=== PATIENT | male | born 1990 | race Caucasian/White ===

== ENCOUNTER 2016-06-03 23:10 | Emergency (ER) | payer BC ==
[~2016-06-03 23:10] MED LIST: MOTRIN
== END 2016-06-03 23:53 | disposition home or self-care (01) ==
LOC: SED 23:10
DX: K64.4 Residual hemorrhoidal skin tags (principal); F31.9 Bipolar disorder, unspecified; F17.200 Nicotine dependence, unspecified, uncomplicated
CPT/HCPCS: 99283

== ENCOUNTER 2016-07-23 19:22 | Emergency (ER) | payer OTHER, BC ==
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
[2016-07-23] MEDS ORDERED: CLARITIN10 M2 (19:35)
== END 2016-07-23 20:49 | disposition home or self-care (01) ==
LOC: SED 19:22
DX: S16.1XXA Strain of muscle, fascia and tendon at neck level, initial encounter (principal); S39.012A Strain of muscle, fascia and tendon of lower back, initial encounter; F17.210 Nicotine dependence, cigarettes, uncomplicated; V49.40XA Driver injured in collision with unspecified motor vehicles in traffic accident, initial encounter; Y92.410 Unspecified street and highway as the place of occurrence of the external cause
CPT/HCPCS: 72040; 72100; 99284

== ENCOUNTER 2016-10-05 23:23 | Emergency (ER) | payer SELFPAY ==
[~2016-10-05] VITALS: Ht 172.7 cm; Wt 83.9 kg
[~2016-10-05 23:23] MED LIST changes: +CLARITIN10 M2
[2016-10-06 01:14] LABS: ARTERIAL BLD GAS O2 SATURATION 87.5 % (90.0-100.0); ARTERIAL BLOOD GAS CARBOXY HB 4.6 %sat (0.0-9.0)
[2016-10-06 01:15] LABS: ARTERIAL DRAW? YES
[2016-10-06 01:16] LABS: ARTERIAL BLOOD GAS ART SITE RIGHT RADIAL
== END 2016-10-06 01:44 | disposition home or self-care (01) ==
LOC: SED 23:23
PROVIDERS: Physician Assistant
DX: G43.909 Migraine, unspecified, not intractable, without status migrainosus (principal); F20.9 Schizophrenia, unspecified; F31.9 Bipolar disorder, unspecified; F17.200 Nicotine dependence, unspecified, uncomplicated; Z96.22 Myringotomy tube(s) status
CPT/HCPCS: 36415; 36600; 82803; 96361; 96374; 96375; 99283; J0780; J1200; J1885